=== PATIENT | male | born 1990 | race Caucasian/White ===

== ENCOUNTER 2017-04-15 18:06 | Emergency (ER) | payer OTHER ==
[2017-04-15] MEDS: IBUPROFEN 600 MG TAB PO (20:00)
[2017-04-15] MEDS: AMOXICILLIN 500 MG CAP PO (20:00)
[2017-04-15] MEDS: ACETAMINOPHEN TAB 650MG DOSE (2X325MG) PO (20:00)
== END 2017-04-15 20:10 | disposition home or self-care (01) ==
LOC: M ED 18:06
DX: J02.0 Streptococcal pharyngitis (principal); F17.200 Nicotine dependence, unspecified, uncomplicated
CPT/HCPCS: 87880